=== PATIENT | female | born 1960 | race Caucasian/White ===

== ENCOUNTER 2021-02-26 21:38 | Inpatient (IN) | payer OTHER, BC ==
[~2021-02-26 21:38] MED LIST: Iopamidol 370 76% 100 ML VIAL ONE
[2021-02-26] MEDS ORDERED: Fentanyl 100 MCG/2 ML VIAL ONE (21:46)
[2021-02-26] MEDS ORDERED: Boostrix 0.5 ML (Tdap) VIAL ONE (21:49)
[2021-02-26 22:03] LABS: #Basophils 0.1 thou/uL (0.0-0.2); #Eosinphils 0.2 thou/uL (0.0-0.7); #Lymphocytes 3.5 thou/uL (1.20-3.40); #Monocytes 0.6 thou/uL (0.11-0.59); #Neutrophils 5.4 thou/uL (1.40-6.50); %Basophils 0.9 % (0.0-1.0); %Eosinophils 2.2 % (0.0-10.0); %Lymphocytes 35.5 % (21.0-51.0); %Monocytes 5.9 % (0.0-10.0); %Neutrophils 55.5 % (42.0-75.0); Hemoglobin 13.7 g/dL (12.0-16.0); Mean Corpuscular HGB CONC 31.5 g/dL (32.0-36.0); Mean Corpuscular Hemoglobin 28.5 pg (27.0-31.0); Mean Corpuscular Volume 90.5 fL (78.0-98.0); Mean Platelet Volume 8.4 fL (7.4-10.4); Platelet Count 184 thou/uL (130-400); RBC Distribution Width 12.4 % (11.5-14.5); Red Blood Cell (RBC) Count 4.81 mill/uL (4.20-5.40); White Blood Cell (WBC) Count 9.8 thou/uL (4.8-10.8)
[2021-02-26 22:23] LABS: ALT (SGPT) 46 U/L (8-55); AST (SGOT) 40 U/L (5-34); Albumin 3.8 g/dL (3.4-4.8); Alcohol Less than 10 mg/dL (Less than 10); Alkaline Phosphatase 64 U/L (40-110); Anion Gap 16 mmol/L (10-20); BUN (Urea Nitrogen) 16 mg/dL (9.8-20.1); Bilirubin, Total 0.4 mg/dL (0.2-1.2); Calc. Creatinine Clearance 0 mL/min (70-130); Calcium 8.7 mg/dL (7.8-10.44); Carbon Dioxide 21 mmol/L (23-31); Chloride 106 mmol/L (98-107); Globulin 2.7 g/dL (2.4-3.5); Glucose 143 mg/dL (80-115); Potassium 3.4 mmol/L (3.5-5.1); Protein, Total 6.5 g/dL (5.8-8.1); Sodium 140 mmol/L (136-145)
[2021-02-26] MEDS ORDERED: Ondansetron PF 4 MG/2 ML Vial IVP PRN (22:27)
[2021-02-26] MEDS ORDERED: Morphine 2 MG/ML VIAL SLOW IVP PRN (22:27)
[2021-02-26] MEDS ORDERED: Dextrose 5% in Water 1,000 ML IV PRN (22:27)
[2021-02-26] MEDS ORDERED: Dextrose 50% Abboject 50 ML SYRINGE SLOW IVP PRN (22:27)
[2021-02-26] MEDS ORDERED: Potassium Chloride 20 MEQ TAB PO SCH (22:30)
[2021-02-26] MEDS ORDERED: Ondansetron PF 4 MG/2 ML Vial ONE (22:44)
[2021-02-26] MEDS ORDERED: Ketorolac Tromethamine 30 MG/ML VIAL ONE (22:44)
[2021-02-26] MEDS ORDERED: Lactated Ringer's 1,000 ML IV SCH (23:00)
[2021-02-26] MEDS ORDERED: Cyclobenzaprine 10 MG TAB PO PRN (23:00)
[2021-02-26] MEDS: Acetaminophen 500 MG TAB PO SCH (23:42)
[2021-02-26] MEDS: traMADol HCl 50 MG TAB PO SCH (23:46)
[2021-02-26 23:56] VITALS: BMI 38.9
[2021-02-27] MEDS: Rib Fracture Protocol PO SCH ×2 (01:09→22:02)
[2021-02-27] MEDS: traMADol HCl 50 MG TAB PO SCH ×2 (05:15→11:46)
[2021-02-27 05:19] LABS: #Lymphocytes 0.6 thou/uL (1.20-3.40); #Monocytes 0.5 thou/uL (0.11-0.59); #Neutrophils 8.2 thou/uL (1.40-6.50); %Basophils 0.3 % (0.0-1.0); %Eosinophils 0.2 % (0.0-10.0); %Lymphocytes 6.7 % (21.0-51.0); %Monocytes 5.7 % (0.0-10.0); %Neutrophils 87.2 % (42.0-75.0); Hemoglobin 12.3 g/dL (12.0-16.0); Mean Corpuscular Hemoglobin 29.7 pg (27.0-31.0); Mean Corpuscular Volume 90.1 fL (78.0-98.0); Mean Platelet Volume 9.3 fL (7.4-10.4); Platelet Count 142 thou/uL (130-400); RBC Distribution Width 12.3 % (11.5-14.5); Red Blood Cell (RBC) Count 4.15 mill/uL (4.20-5.40); White Blood Cell (WBC) Count 9.4 thou/uL (4.8-10.8)
[2021-02-27 05:32] LABS: SARS-CoV-2 NAA Rapid Test Not Detected (NotDetected)
[2021-02-27 05:37] LABS: Anion Gap 12 mmol/L (10-20); BUN (Urea Nitrogen) 12 mg/dL (9.8-20.1); Calc. Creatinine Clearance 125 mL/min (70-130); Calcium 8.4 mg/dL (7.8-10.44); Carbon Dioxide 21 mmol/L (23-31); Chloride 109 mmol/L (98-107); Glucose 166 mg/dL (80-115); Magnesium 1.9 mg/dL (1.6-2.6); Phosphorus 3.3 mg/dL (2.3-4.7); Potassium 4.4 mmol/L (3.5-5.1); Sodium 138 mmol/L (136-145)
[2021-02-27] MEDS: Ibuprofen 800 MG TAB PO SCH ×3 (06:26→20:36)
[2021-02-27] MEDS: Acetaminophen 500 MG TAB PO SCH ×2 (06:26→11:16)
[2021-02-27] MEDS: Famotidine 20 MG TAB PO SCH ×2 (08:52→20:36)
[2021-02-27] MEDS: Gabapentin 300 MG CAP PO SCH ×3 (08:52→20:35)
[2021-02-27] MEDS ORDERED: Acetaminophen 500 MG TAB PO SCH (12:00)
[2021-02-27] MEDS: Acetaminophen 325 MG TAB PO SCH ×3 (12:04→23:41)
[2021-02-27] MEDS: Acetaminophen/Codeine 30-300mg Tablet PO SCH ×4 (12:08→23:44)
[2021-02-27] MEDS: Enoxaparin Sodium 40 MG/0.4 ML SYRINGE SC SCH (20:36)
[2021-02-28] MEDS: Acetaminophen/Codeine 30-300mg Tablet PO SCH ×6 (04:47→23:21)
[2021-02-28] MEDS: Ibuprofen 800 MG TAB PO SCH ×3 (04:48→23:22)
[2021-02-28] MEDS: Acetaminophen 325 MG TAB PO SCH ×4 (06:19→23:24)
[2021-02-28] MEDS: Gabapentin 300 MG CAP PO SCH (08:22)
[2021-02-28] MEDS: Famotidine 20 MG TAB PO SCH (08:22)
[2021-02-28] MEDS ORDERED: Scopolamine 1.5 mg/72 hour Patch TD SCH (15:00)
[2021-02-28] MEDS: Pregabalin 75 MG CAP PO SCH (20:11)
[2021-02-28] MEDS: Enoxaparin Sodium 40 MG/0.4 ML SYRINGE SC SCH (20:12)
[2021-02-28] MEDS: Rib Fracture Protocol PO SCH (21:43)
[2021-03-01] MEDS: Acetaminophen/Codeine 30-300mg Tablet PO SCH ×3 (04:27→12:31)
[2021-03-01] MEDS: Acetaminophen 325 MG TAB PO SCH ×3 (07:00→17:57)
[2021-03-01] MEDS: Ibuprofen 800 MG TAB PO SCH ×2 (07:00→15:31)
[2021-03-01] MEDS: Pregabalin 75 MG CAP PO SCH (09:09)
[2021-03-01] MEDS ORDERED: Lidocaine 5% Patch TD SCH (11:00)
[2021-03-01] MEDS ORDERED: Acetaminophen/Codeine 30-300mg Tablet PO PRN (13:11)
[2021-03-01 15:57] VITALS: BP 99/65; TEMP 97.5
[2021-03-01] MEDS ORDERED: Transdermal Patch Removal TOP SCH (23:00)
== END 2021-03-01 19:35 | DRG 185 ==
LOC: EDBD 21:38 → ERS 21:38 → SURG A 22:27
PROVIDERS: ADMIT Surgery; ATTEND Surgery
DX: S22.43XA Multiple fractures of ribs, bilateral, initial encounter for closed fracture (principal); V19.9XXA Pedal cyclist (driver) (passenger) injured in unspecified traffic accident, initial encounter; Z20.822 Contact with and (suspected) exposure to COVID-19; G62.9 Polyneuropathy, unspecified
CPT/HCPCS: 36415; 70450; 71045; 71260; 72125; 74177; 80048; 80053; 80307; 83735; 84100; 85025; 86850; 86900; 86901; 90471; 90715; 94640; 96374; 96375; G0390; J1650; J1885; J2405; J3010; J7620; Q9967; U0002

== ENCOUNTER 2021-03-05 11:06 | Emergency (ER) | payer BC ==
[2021-03-05] MEDS ORDERED: Enoxaparin Sodium 100 MG/ML SYRINGE ONE (11:58)
== END 2021-03-05 14:50 ==
LOC: ERS 11:06
DX: I82.402 Acute embolism and thrombosis of unspecified deep veins of left lower extremity (principal); G62.9 Polyneuropathy, unspecified
CPT/HCPCS: 96372; 99283; J1650

== ENCOUNTER 2021-03-16 23:06 | Emergency (ER) | payer BC ==
[2021-03-17] MEDS ORDERED: Morphine 4 MG/ML VIAL ONE (01:10)
== END 2021-03-17 03:01 | disposition home or self-care (01) ==
LOC: ERS 23:06
DX: S22.42XA Multiple fractures of ribs, left side, initial encounter for closed fracture (principal); Z79.899 Other long term (current) drug therapy; X58.XXXA Exposure to other specified factors, initial encounter
CPT/HCPCS: 71046; 96372; J2270

== ENCOUNTER 2022-07-12 10:16 | Outpatient (CLI) | payer BC, OTHER | END 2022-07-12 10:17 | disposition home or self-care (01) | LOC: DTY/OP 10:16 | PROVIDERS: ATTEND Surgery | DX: E66.01 Morbid (severe) obesity due to excess calories (principal) | CPT/HCPCS: 97802 ==

== ENCOUNTER 2022-08-25 14:07 | Outpatient (CLI) | payer BC ==
[2022-08-25 15:09] LABS: #Eosinphils 0.1 10x3/uL (0.0-0.5); #Monocytes 0.5 10x3/uL (0.0-1.1); #Neutrophils 3.1 10x3/uL (1.5-8.4); %Basophils 0.5 % (0.0-2.0); %Eosinophils 2.4 % (0.0-6.0); %Lymphocytes 36.6 % (18.0-47.0); %Monocytes 7.6 % (0.0-10.0); %Neutrophils 52.7 % (40.0-75.0); Mean Corpuscular HGB CONC 33.5 g/dL (32.0-36.0); Mean Corpuscular Volume 86.7 fl (81.6-98.3); Mean Platelet Volume 11.2 fl (7.4-10.4); Platelet Count 208 10x3/uL (150-450); RBC Distribution Width 13.4 % (11.5-14.5); Red Blood Cell (RBC) Count 4.82 10x6/uL (3.90-5.03); White Blood Cell (WBC) Count 5.9 10x3/uL (3.5-10.5)
[2022-08-25 15:44] LABS: ALT (SGPT) 21 U/L (8-55); AST (SGOT) 19 U/L (5-34); Albumin 4.1 g/dL (3.4-4.8); Alkaline Phosphatase 62 U/L (40-110); Anion Gap 11 mmol/L (10-20); BUN (Urea Nitrogen) 19 mg/dL (9.8-20.1); Bilirubin, Total 0.3 mg/dL (0.2-1.2); Calc. Creatinine Clearance 0 mL/min (70-130); Calcium 9.4 mg/dL (7.8-10.44); Carbon Dioxide 25 mmol/L (23-31); Chloride 108 mmol/L (98-107); Estimated GFR 69; Globulin 2.2 g/dL (2.4-3.5); Glucose 95 mg/dL (80-115); Potassium 3.8 mmol/L (3.5-5.1); Protein, Total 6.3 g/dL (5.8-8.1); Sodium 140 mmol/L (136-145)
[2022-08-25 19:53] LABS: Hemoglobin A1c 5.7 % (4.0-6.0)
== END 2022-08-25 14:08 | disposition home or self-care (01) ==
LOC: LABBT 14:07
PROVIDERS: ATTEND Surgery
DX: Z01.818 Encounter for other preprocedural examination (principal); E66.01 Morbid (severe) obesity due to excess calories
CPT/HCPCS: 71046; 80053; 83036; 85025; 93005; 93010

== ENCOUNTER 2024-01-11 10:23 | Emergency (ER) | payer OTHER, BC | END 2024-01-11 12:59 | disposition home or self-care (01) | LOC: ERS 10:23 | DX: S20.211A Contusion of right front wall of thorax, initial encounter (principal); S06.9X0A Unspecified intracranial injury without loss of consciousness, initial encounter; G56.20 Lesion of ulnar nerve, unspecified upper limb; V03.99XA Pedestrian with other conveyance injured in collision with car, pick-up truck or van, unspecified whether traffic or nontraffic accident, initial encounter; Y92.410 Unspecified street and highway as the place of occurrence of the external cause | CPT/HCPCS: 71046; 93005 ==